=== PATIENT | male | born 1950 | race Caucasian/White ===

== ENCOUNTER 2017-03-23 13:42 | Inpatient (IN) | payer MEDICARE, MEDICAID ==
[~2017-03-23] VITALS: Ht 172.7 cm; Wt 72.6 kg
[2017-03-23] MEDS ORDERED: IPRATROPIUM BROM 0.5 MG/2.5ML INH SOL NEB ONE (14:15)
[2017-03-23] MEDS ORDERED: ALBUTEROL SULF 2.5 MG/0.5ML(0.5%) NEB SOLN NEB ONE (14:15)
[2017-03-23] MEDS ORDERED: SODIUM CHLORIDE 0.9% 1,000 ML IV ONE (14:15)
[2017-03-23 14:40] LABS: Eosinophils # (auto) 0 uL; Eosinophils % (auto) 0.1 % (0.0-7.0); Nucleated Red Blood Cells % 0.4 %
[2017-03-23 14:42] LABS: Basophils # (auto) 0.1 uL; Basophils % (auto) 0.5 % (0.0-2.0); Hemoglobin 17.6 g/dL (13.5-17.5); Lymphocytes # (auto) 1.5 uL; Lymphocytes % (auto) 10.5 % (10.0-50.0); Mean Corpuscular Hemoglobin 24.8 pg (28.0-32.0); Mean Corpuscular Volume 82.9 fL (80.0-100.0); Monocytes # (auto) 0.7 uL; Monocytes % (auto) 5.1 % (0.0-12.0); Neutrophils # (auto) 12.3 uL; Neutrophils % (auto) 83.8 % (37.0-80.0); Red Cell Distribution Width 17.6 % (11.8-14.3); White Blood Cell 14.7 10^3/uL (4.4-10.8)
[2017-03-23 14:46] LABS: Hematocrit 58.9 % (41.0-53.0)
[2017-03-23 14:47] LABS: Platelet Count (auto) 81 10^3/uL (140-450)
[2017-03-23 15:02] LABS: Albumin 3.6 g/dL (3.4-5.0); BUN/Creatinine Ratio 20.5; Bilirubin, Total 1.1 mg/dL (0.2-1.0); Calcium 9.4 mg/dL (8.5-10.1); Magnesium 3.9 mg/dL (1.6-2.6); Potassium 3.7 mmol/L (3.5-5.1); Total Protein 8.7 g/dL (6.4-8.2)
[2017-03-23] MEDS ORDERED: OXYCODONE W/ ACETAMINOPHEN 5/325MG TABLET PO PRN (16:15)
[2017-03-23] MEDS ORDERED: MORPHINE SULF INJ 2 MG/ML SYRINGE 1ML IV PRN (16:15)
[2017-03-23] MEDS ORDERED: DEXTROSE (50%) 50ML SYRG IV PRN (16:15)
[2017-03-23] MEDS ORDERED: ONDANSETRON HCL 4 MG/2 ML VIAL IV PRN (16:15)
[2017-03-23] MEDS ORDERED: MILK OF MAGNESIA 30ML SUSP PO PRN (16:15)
[2017-03-23] MEDS ORDERED: cefTRIAXone 1GM/10ml IVPUSH 10 ML IV ONE (16:15)
[2017-03-23] MEDS ORDERED: ACETAMINOPHEN 325 MG TAB PO PRN (16:15)
[2017-03-23] MEDS ORDERED: TEMAZEPAM 15 MG CAP PO PRN (16:15)
[2017-03-23] MEDS ORDERED: D5W/SOD CHL 0.2% 1,000 ML IV SCH (16:30)
[2017-03-23] MEDS ORDERED: LORazepam 2MG/ML-1ML VIAL IV PRN (16:30)
[2017-03-23 16:35] LABS: Lactic Acid w/Reflex 4.8 mmol/L (0.4-2.0)
[2017-03-23] MEDS: ACCU-CHEK COMFORT CURVE STRIP VI SCH ×2 (16:55→21:18)
[2017-03-23] MEDS: InsuLIN REG 1unit/0.01ml Soln (100units/ml) SC SCH ×2 (16:56→21:27)
[2017-03-23] MEDS ORDERED: AZITHROMYCIN 500MG/ 250ML 250 ML IV ONE (17:00)
[2017-03-23] MEDS ORDERED: ALBUTEROL SULF 2.5 MG/0.5ML(0.5%) NEB SOLN NEB SCH (18:00)
[2017-03-23] MEDS ORDERED: IPRATROPIUM BROM 0.5 MG/2.5ML INH SOL NEB SCH (18:00)
[2017-03-23] MEDS ORDERED: FAMOTIDINE 20 MG TAB PO SCH (20:00)
[2017-03-23 21:16] LABS: Lactic Acid w/Reflex 5.7 mmol/L (0.4-2.0)
[2017-03-23 21:25] LABS: Urine Bacteria FEW /hpf (None Seen); Urine Blood 2+ /uL (Negative); Urine Hyaline Cast MANY /lpf (0 - 2); Urine Mucus FEW (None Seen); Urine Specific Gravity 1.031 (1.001-1.035); Urine WBC 48 /hpf (0 - 3)
[2017-03-23] MEDS ORDERED: ACETAMINOPHEN 650 mg PER 20 mL UD ONE (21:35)
[2017-03-23] MEDS ORDERED: DONEPEZIL HYDROCHLORIDE 5 MG TAB PO SCH (22:00)
[2017-03-23] MEDS ORDERED: ATORVASTATIN 20 MG TAB PO SCH (22:00)
[2017-03-23] MEDS ORDERED: ASCORBIC ACID 500 MG TAB PO SCH (22:00)
[2017-03-23] MEDS ORDERED: Niacin SR 500mg TAB PO SCH (22:00)
[2017-03-23] MEDS ORDERED: LEVETIRACETAM 500 MG TAB PO SCH (22:00)
[2017-03-23 22:17] VITALS: BP 88/59
[2017-03-24] MEDS ORDERED: FAM20T PO (01:46)
[2017-03-24] MEDS ORDERED: SIMV10TA73 PO (01:46)
[2017-03-24] MEDS ORDERED: DONE5TAB11 PO (01:46)
[2017-03-24] MEDS ORDERED: CLOP75TA28 PO (01:46)
[2017-03-24] MEDS ORDERED: MAGN400S25 PO (01:46)
[2017-03-24] MEDS ORDERED: DOCU-94 PO (01:46)
[2017-03-24] MEDS ORDERED: NIAC500T58 PO (01:46)
[2017-03-24] MEDS ORDERED: LEVE250T18 PO (01:46)
[2017-03-24] MEDS ORDERED: ACET120S38 PR (01:46)
[2017-03-24] MEDS ORDERED: MULTCAP45 PO (01:46)
[2017-03-24] MEDS ORDERED: PERCOT PO (01:46)
[2017-03-24] MEDS ORDERED: cefTRIAXone 1GM/10ml IVPUSH 10 ML IV SCH (09:00)
[2017-03-24] MEDS ORDERED: ZINC SULFATE 220 MG CAP PO SCH (10:00)
[2017-03-24] MEDS ORDERED: AZITHROMYCIN 500MG/ 250ML 250 ML IV SCH (10:00)
[2017-03-24] MEDS ORDERED: MULTIPLE VITAMIN TAB PO SCH (10:00)
[2017-03-24] MEDS ORDERED: ENOXAPARIN SOD 30 MG/0.3 ML SYRINGE SC SCH (10:00)
[2017-03-24] MEDS ORDERED: CLOPIDOGREL BISULFATE 75 MG TAB PO SCH (10:00)
== END 2017-03-24 05:50 | disposition expired | DRG 871 ==
LOC: EDBD 13:42 → ER 13:42 → EDUNIT# 13:42 → OVERFLOW 13:43 → CENTRAL 22:17
PROVIDERS: ADMIT Internal Medicine; ATTEND Internal Medicine
DX: A41.9 Sepsis, unspecified organism (principal); G93.41 Metabolic encephalopathy; J69.0 Pneumonitis due to inhalation of food and vomit; E11.21 Type 2 diabetes mellitus with diabetic nephropathy; D75.1 Secondary polycythemia; E11.22 Type 2 diabetes mellitus with diabetic chronic kidney disease; E87.0 Hyperosmolality and hypernatremia; I12.0 Hypertensive chronic kidney disease with stage 5 chronic kidney disease or end stage renal disease; J45.901 Unspecified asthma with (acute) exacerbation; R06.3 Periodic breathing; N18.5 Chronic kidney disease, stage 5; Z66 Do not resuscitate; E11.65 Type 2 diabetes mellitus with hyperglycemia; E78.5 Hyperlipidemia, unspecified; E83.41 Hypermagnesemia; F32.9 Major depressive disorder, single episode, unspecified; F41.9 Anxiety disorder, unspecified; E86.0 Dehydration; F03.90 Unspecified dementia, unspecified severity, without behavioral disturbance, psychotic disturbance, mood disturbance, and anxiety; K21.9 Gastro-esophageal reflux disease without esophagitis; G40.909 Epilepsy, unspecified, not intractable, without status epilepticus; I69.320 Aphasia following cerebral infarction; Z82.49 Family history of ischemic heart disease and other diseases of the circulatory system
CPT/HCPCS: 36415; 51702; 70450; 71045; 80053; 81001; 82962; 83036; 83605; 83615; 83735; 84443; 84484; 85025; 87040; 87086; 87088; 87186; 93005; 93306; 94640; 96374; J1815